=== PATIENT | male | born 1975 | race Caucasian/White ===

== ENCOUNTER 2019-05-07 06:46 | Emergency (ER) | payer BC, OTHER ==
[~2019-05-07] VITALS: Ht 182.9 cm; Wt 86.2 kg
[~2019-05-07 06:46] MED LIST: BACTRIM DS TAB1 EACH PO; HYDRALAZINE 2525 MG PO; KEFLEX500 MG PO; NOHOMEMEDICATIONS; NORCO 5-325 TA1 EACH PO
[2019-05-07] MEDS ORDERED: IBUPROFEN 600600 M1 PO (09:24)
[2019-05-07] MEDS ORDERED: NORFLEX100 MG PO (09:24)
[2019-05-07] MEDS ORDERED: ULTRAM 50MG TAB50 MG PO (09:24)
[2019-05-07 09:30] VITALS: BP 127/83
== END 2019-05-07 09:30 | disposition home or self-care (01) ==
LOC: ER 06:46
DX: R07.89 Other chest pain (principal); F17.210 Nicotine dependence, cigarettes, uncomplicated